=== PATIENT | male | born 1935 | race African-American/Black ===

== ENCOUNTER → 2016-07-21 | Outpatient (CLI) | payer MEDICARE ==
[~2016-07-21] MED LIST: BACLOFEN10 MG PO; ELIQUIS5 MG PO; FOSINOPRIL SODI20 MG PO; LATANOPROST2.5 ML OP; LOTENSIN20 MG PO; MULTI-VITAMIN1 EAC1 PO; PANTOPRAZOLE SO40 MG PO; SIMVASTATIN20 MG PO; TENORMIN25 MG; TRIAMTERENE-HC1 EACH PO; ZYRTEC10 M1 PO
--- NOTE | ~2016-07-21 | CT71 ---
[facility] A Service of [facility] RADIOLOGY TEXT RESULTS PATIENT: BRADLEY MENDEZ JR LOCATION: [facility] : 37 UNIT #: [id number] AGE: [address]: Anurag Marina MD SEX: M ORDER DR: [id number] [facility] [address] [place], [place] [address] [id number] O MR#: [id number] Acc #: [id number] NAME: BRADLEY MENDEZ : 1935 SEX: M STUDY DATE/TIME: 07/21/2016 10:01 UNIT: [facility] ROOM: STUDY DESCRIPTION: CT Head Wo Contrast Attending Physician: Anurag Marina Sr., M.D. Referring Physician: Anurag Marina Sr., M.D. Ordering Physician: Anurag Marina Sr., M.D. Primary Care Physician: Anurag Marina Sr., M.D. MEDICAL IMAGING REPORT This report is preliminary unless electronic signature is present PROCEDURE Axial unenhanced head CT. This CT exam was performed with one or more of the following radiation dose reduction techniques: automatic exposure control, adjustment of mA and/or kV according to patient size, and iterative reconstruction. CLINICAL HISTORY Frontal and bitemporal headache for 2-3 weeks. FINDINGS There is an air-fluid level on the right maxillary sinus and there is right sphenoid and bilateral ethmoid sinus mucosal thickening. There is mild age-appropriate cerebral volume loss, and there is minimal age-appropriate nonspecific white matter change. There is no hemorrhage or hydrocephalus or extraaxial fluid collection. IMPRESSION Paranasal sinus mucosal disease including an air-fluid level on the right maxillary sinus which may suggest acute sinusitis. Otherwise, normal for age, negative unenhanced head CT. Dictated by... Hernandez Smith M.D. THIS IS AN ELECTRONICALLY VERIFIED REPORT Hernandez Smith M.D. at 07/27/2016 10:41 AM PIPO/josue TD: 07/21/2016 18:52 JOB #: [id number] [facility] A Service of [facility] RADIOLOGY TEXT RESULTS PATIENT: BRADLEY MENDEZ JR LOCATION: [facility] #: [id number] : 37 UNIT #: [id number] AGE: [address]: Anurag Marina MD SEX: M ORDER DR: MEDICAL IMAGING REPORT Page 1 of 1 COPY
== END | disposition home or self-care (01) ==
LOC: CCAT 09:41
DX: R51 Headache (principal); J34.89 Other specified disorders of nose and nasal sinuses
CPT/HCPCS: 70450